=== PATIENT | female | born 1965 | race Caucasian/White ===

== ENCOUNTER 2017-11-15 08:30 | Emergency (ER) | payer OTHER ==
--- NOTE | 2017-11-15 09:03 | ERPHSYRPT ---
- History of Present Illness Time Seen by Provider: 11/15/17 08:57 Source: patient Physician History: pt wants to know that she is on the right medicine for Lyme tick exposure. [facility] no fever, no emesis, no visual disturbance. +tender ' bump' on the left scalp is gone now Allergies/Adverse Reactions: cyclobenzaprine HCl [From Flexeril] Allergy (Severe, Verified 11/15/17 08:46) Shortness of Breath hydrocodone Allergy (Verified 11/15/17 08:46) Home Medications: Diclofenac Sodium [Voltaren] 75 mg PO BID 11/03/15 [History] Lisinopril/Hydrochlorothiazide [Lisinopril-Hctz 20-25 mg Tab] 1 each PO DAILY [History] Oxybutynin Chloride [Oxybutynin Chloride ER] 5 mg PO DAILY 11/03/15 [History] Cephalexin Mh 500 mg [Keflex 500 mg] 500 mg PO Q6H 11/15/17 [History] Mometasone/Formoterol [Dulera 200 Mcg/5 Mcg Inhaler] 8.8 gm IH UD 11/15/17 [ History] Ondansetron ODT 4 MG [Zofran Odt 4 mg] 4 mg PO Q6H PRN PRN 11/15/17 [ History] Tramadol HCl 50 mg [Ultram 50 mg] 50 mg PO TIDPRN 11/15/17 [History] Hx Tetanus, Diphtheria Vaccination/Date Given: No Hx Influenza Vaccination/Date Given: No Hx Pneumococcal Vaccination/Date Given: No - Review of Systems Constitutional: No Fever Eyes: No Vision Changes Ears, Nose, & Throat: No Hoarse Respiratory: No Dyspnea Cardiac: No Chest Pain Abdominal/Gastrointestinal: No Abdominal Pain, No Vomiting Neurological: No Dizziness, No Focal Weakness - Past Medical History Pertinent Past Medical History: Yes Neurological History: No Pertinent History Cardiac History: Hypertension Respiratory History: Other Endocrine Medical History: Other Musculoskeletal History: Osteoarthritis GI Medical History: Gallbladder Disease Female Reproductive Disorders: Abnormal Uterine Bleeding Other Medical History: pre diabetic, SOB, R LE fracture - Past Surgical History Past Surgical History: Yes Gastrointestinal: Cholecystectomy Female Surgical History: Hysterectomy, Tubal Ligation - Social History Smoking Status: Never smoker Exposure to second hand smoke: No Drug Use: none Patient Lives Alone: No - Physical Exam General Appearance: no apparent distress Eye Exam: PERRL/EOMI Ears, Nose, Throat Exam: moist mucous membranes Neck Exam: No meningismus Respiratory Exam: No respiratory distress Cardiovascular Exam: regular rate/rhythm Back Exam: normal inspection Extremity Exam: normal inspection Neurologic Exam: alert, oriented x 3, cooperative Skin Exam: other (no tick seen), No rash - Course Nursing assessment & vital signs reviewed: Yes - Progress Discussed with : Other (Dr Robledo) Will see patient in: office Counseled pt/family regarding: diagnosis, need for follow-up - Departure Time of Disposition: 09:01 Departure Disposition: Home Clinical Impression: Tick bite Qualifiers: Encounter type: subsequent encounter Qualified Code(s): W57.XXXD - Bitten or stung by nonvenomous insect and other nonvenomous arthropods, subsequent encounter Condition: Stable Critical Care Time: No Referrals: COURTNEY ROBLEDO MD [Primary Care Provider] - Instructions: Lyme Disease Additional Instructions: script for doxycycline, tylenol, return if worse, see your doctor
[2017-11-15 09:13] VITALS: BP 102/72; PULSE 106; O2SAT 93
== END 2017-11-15 09:13 | disposition home or self-care (01) ==
LOC: ED 08:30
DX: S00.06XD Insect bite (nonvenomous) of scalp, subsequent encounter (principal); W57.XXXD Bitten or stung by nonvenomous insect and other nonvenomous arthropods, subsequent encounter
CPT/HCPCS: 99281; 99283

== ENCOUNTER 2022-03-25 11:56 | Observation (INO) | payer MEDICARE ==
[2022-03-25 12:30] LABS: Absolute Neutrophil Ct (ANC) 6.66 x10^3/uL (1.4-6.9); Basophil (Absolute #) 0.04 x10^3/uL (0-0.4); Eosinophil % 2.1 % (0.00-5.0); Eosinophil (Absolute #) 0.19 x10^3/uL (0-0.5); Hematocrit 38.7 % (35-47); Hemoglobin 11.6 g/dL (12.0-16.0); Lymphocyte (Absolute #) 1.38 x10^3/uL (1.0-4.6); Lymphocytes % 15.5 % (24.0-44.0); Mean Cell Volume 94.4 fL (78-100); Mean Corpuscular Hemoglobin 28.3 pg (26-32); Mean Platelet Volume 11.4 fL (7.5-11.0); Monocyte (Absolute #) 0.58 x10^3/uL (0.0-1.3); Monocytes % 6.5 % (0.0-12.0); Neutrophil % 74.6 % (36.0-66.0); Platelet Count 207 x10^3/uL (150-450); Red Cell Distribution Width 17.3 % (11.5-14.0); White Blood Count 8.9 x10^3/uL (4.0-10.5)
--- NOTE | 2022-03-25 12:43 | XRAY ---
Exam: AP upright portable chest film from 03/25/2022. Comparison: None. Indication: 56-year-old female with chest pain; shortness of breath. Findings: The transverse heart size appears at the upper limits of normal, although there is some magnification on this AP portable technique. Minimal tortuosity of the descending thoracic aorta is seen. The nicholas and mediastinal structures reveal no pathological lymphadenopathy or other significant abnormality. The lungs are adequately expanded. There is a suggestion of mild passive vascular congestion within the nicholas and both lower lung teran. I do not see an airspace infiltrate. No pneumothorax or pleural effusion is seen. EKG leads are seen in place. Slight convexity of the mid thoracic spine toward the right is seen. Some subtle lateral osteophyte formation is seen within the thoracic spine. Impression: 1. The heart size appears towards the upper limits of normal, and there is some mild passive vascular congestion within the nicholas and lung bases. Correlate clinically. I do not see any air space infiltrates, Daja B lines, or pleural effusions. 2. No other acute cardiopulmonary disease is seen.
[2022-03-25 12:49] LABS: ALBUMIN 3.8 g/dL (3.5-5.0); ALKALINE PHOSPHATASE 129 U/L (38-126); ANION GAP 14.7 MEQ/L (5-15); BLOOD UREA NITROGEN 12 mg/dL (7-17); CHLORIDE 107 mmol/L (98-107); Calcium 8.3 mg/dL (8.4-10.2); Carbon Dioxide 23 mmol/L (22-30); Creatinine 1 0.54 mg/dL (0.52-1.04); EST GLOMERULAR FILTRATION RATE > 60.0 ML/MIN; Glucose 145 mg/dL (74-106); NT PRO BNP 593 pg/mL (0-900); Potassium 3.6 mmol/L (3.5-5.1); SGOT/AST 21 U/L (14-36); SGPT/ALT 22 U/L (0-35); SODIUM 142 mmol/L (137-145); Total Protein 6.9 g/dL (6.3-8.2)
--- NOTE | 2022-03-25 13:07 | ERPHSYRPT ---
- History of Present Illness Time Seen by Provider: 03/25/22 14:37 Historian: patient Exam Limitations: no limitations Patient Subjective Stated Complaint: Pt states "About 6 am this morning I noticed a pain in my left side in my neck and the pain is in my left shoudler an d chest. I went to Dr. Forman and he said since I am a diabetic I am a high risk for a silent heart attack so he sent me here." Triage Nursing Assessment: Pt presented alert and oriented X 3, skin pwd. Pt ambulates with an upright steady gait, able to speak in clear full sentences. pt resting comfortably on the bed. Physician History: Please 56-year-old female presents to our ED as referral from primary care doctor for evaluation of chest pain. Chest pain started approximately 6 AM. Chest pain described as an ache at his left chest that radiates to her left arm and neck. Patient denies a history of the same. Patient has a BMI of 63.3. S he is a diabetic. Symptoms are consistent with acute coronary syndrome. She has not taken aspirin or nitro today. Symptoms are constant. Symptoms are mild to moderate in intensity. No specific worsening improving factors. Patient voices no other complaints or concerns at this time. Portions of this note were created with voice recognition technology. There may be grammatical, spelling, punctuation or sound alike errors Timing/Duration: today Activities at Onset: none Quality: aching Location: other Chest Pain Radiation: neck (Left chest), arm Severity of Pain-Max: moderate Severity of Pain-Current: mild Modifying Factors: Improves With: nothing Associated Symptoms: denies symptoms Prior Chest Pain/Cardiac Workup: no prior chest pain Nitro Today/Relief: no nitro taken today Aspirin Treatment Today: no aspirin today Allergies/Adverse Reactions: cyclobenzaprine HCl [From Flexeril] Allergy (Severe, Verified 01/11/18 16:04) Shortness of Breath hydrocodone Allergy (Verified 01/11/18 16:04) Home Medications: Oxybutynin Chloride Xl 5 mg [Ditropan XL 5 MG] 5 mg PO DAILY 04/26/15 [History] Oxybutynin Chloride [Oxybutynin Chloride ER] 5 mg PO DAILY 11/03/15 [History] Ondansetron ODT 4 MG [Zofran Odt 4 mg] 4 mg PO Q6H PRN PRN 11/15/17 [History] Hx Tetanus, Diphtheria Vaccination/Date Given: Yes Hx Influenza Vaccination/Date Given: No Hx Pneumococcal Vaccination/Date Given: No Immunizations Up to Date: Yes Travel Risk - International Travel Have you traveled outside of the country in past 3 weeks: No - Coronavirus Screening Are you exhibiting any of the following symptoms?: No Close contact with a COVID-19 positive Pt in past 14-21 Days: No - Vaccine Status Have you recieved a Covid-19 vaccination: No - Review of Systems Constitutional: No Symptoms, No Fever, No Chills Eyes: No Symptoms Ears, Nose, & Throat: No Symptoms Respiratory: No Symptoms, No Cough, No Dyspnea Cardiac: No Symptoms, No Chest Pain, No Edema, No Syncope Abdominal/Gastrointestinal: No Symptoms, No Abdominal Pain, No Nausea, No Vomiting, No Diarrhea Genitourinary Symptoms: No Symptoms, No Dysuria Musculoskeletal: No Symptoms, No Back Pain, No Neck Pain Skin: No Symptoms, No Rash Neurological: No Symptoms, No Dizziness, No Focal Weakness, No Sensory Changes Psychological: No Symptoms Endocrine: No Symptoms Hematologic/Lymphatic: No Symptoms Immunological/Allergic: No Symptoms All Other Systems: Reviewed and Negative - Past Medical History Pertinent Past Medical History: Yes Neurological History: No Pertinent History ENT History: No Pertinent History Cardiac History: Congestive Heart Failure, Hypertension Respiratory History: No Pertinent History, Other Endocrine Medical History: Diabetes Type II Musculoskeletal History: Osteoarthritis GI Medical History: No Pertinent History, Gallbladder Disease History: Other Psycho-Social History: No Pertinent History Female Reproductive Disorders: No Pertinent History, Abnormal Uterine Bleeding Other Medical History: bladder leakage - Past Surgical History Past Surgical History: Yes Neuro Surgical History: No Pertinent History Cardiac: No Pertinent History Respiratory: No Pertinent History Gastrointestinal: Cholecystectomy Genitourinary: No Pertinent History Musculoskeletal: No Pertinent History Female Surgical History: Hysterectomy, Tubal Ligation Other Surgical History: foot left X 2 - Social History Smoking Status: Former smoker Exposure to second hand smoke: No Drug Use: none Patient Lives Alone: No - Nursing Vital Signs Nursing Vital Signs: Initial Vital Signs Temperature 97.1 F 03/25/22 11:56 Pulse Rate 89 03/25/22 11:56 Respiratory Rate 24 03/25/22 11:56 Blood Pressure 132/100 03/25/22 11:56 O2 Sat by Pulse Oximetry 99 09/13/22 11:56 Pain Scale Pain Intensity 4 - Physical Exam General Appearance: no apparent distress, alert, obese Eye Exam: PERRL/EOMI, eyes nml inspection Ears, Nose, Throat Exam: normal ENT inspection, TMs normal, pharynx normal, moist mucous membranes Neck Exam: normal inspection, non-tender, supple, full range of motion Respiratory Exam: normal breath sounds, lungs clear, airway intact, No respiratory distress Cardiovascular Exam: regular rate/rhythm, normal heart sounds, normal peripheral pulses Gastrointestinal/Abdomen Exam: soft, normal bowel sounds, No tenderness, No mass Back Exam: normal inspection, normal range of motion, No CVA tenderness, No vertebral tenderness Extremity Exam: normal inspection, normal range of motion Neurologic Exam: alert, oriented x 3, cooperative, director mission II-XII nml as tested, normal mood/affect, sensation nml, No motor deficits Skin Exam: normal color, warm, dry Lymphatic Exam: No adenopathy SpO2 Interpretation: normal SpO2: 97 O2 Delivery: Room Air - Course Nursing assessment & vital signs reviewed: Yes EKG Interpreted by Me: RATE (88), Sinus Rhythm, NORMAL AXIS, NORMAL INTERVALS - Radiology Exams Chest X-ray Interpretation: Teleradiologist Report (Mild passive vascular congestion within the nicholas and lung bases.) Ordered Tests: Active Orders 24 hr Category Date Time Status Battery Inspector STAT Care 03/25/22 12:18 Active EKG-ER Only STAT Care 03/25/22 12:17 Active IV Insertion STAT Care 03/25/22 12:17 Active Pulse Oximetry (ED) STAT Care 03/25/22 12:17 Active CHEST 1 VIEW (PORTABLE) Stat Exams 03/25/22 12:17 Completed CBC W DIFF Stat Lab 03/25/22 12:20 Completed CMP Stat Lab 03/25/22 12:20 Completed CULTURE,URINE Stat Lab 03/25/22 12:24 Received D-DIMER QUANTITATIVE Stat Lab 03/25/22 12:20 Completed NT PRO BNP Stat Lab 03/25/22 12:20 Completed TROPONIN Q4H Lab 03/25/22 12:20 Completed TROPONIN Q4H Lab 03/25/22 16:30 Ordered TROPONIN Q4H Lab 03/25/22 20:30 Ordered UA W/RFX CULTURE Stat Lab 03/25/22 12:24 Completed Transfer Order Routine Transfer 03/25/22 Ordered Medication Summary Discontinued Medications Generic Name Dose Route Start Last Admin Trade Name Julieth PRN Reason Stop Dose Admin Aspirin 324 mg 03/25/22 14:45 03/25/22 14:49 Aspirin 81 Mg Tab.Chew PO 03/25/22 14:46 324 mg STAT ONE Administration Aspirin Confirm 03/25/22 14:47 Aspirin 81 Mg Tab.Chew Administered 03/25/22 14:48 Dose 324 mg .ROUTE .STK-MED ONE Nitroglycerin 1 gm 03/25/22 14:44 03/25/22 14:49 Nitroglycerin 1 Gm Packet TOP 03/25/22 14:45 1 gm STAT ONE Administration Nitroglycerin Confirm 03/25/22 14:47 Nitroglycerin 1 Gm Packet Administered 03/25/22 14:48 Dose 1 gm .ROUTE .STK-MED ONE Lab/Rad Data: Laboratory Result Diagrams 03/25/22 12:20 03/25/22 12:20 Laboratory Results 03/25/22 03/25/22 03/25/22 Range/Units 12:24 12:24 12:20 WBC (4.0-10.5) x10^3/uL RBC (4.1-5.4) x10^6/uL Hgb (12.0-16.0) g/dL Hct (35-47) % MCV (78-100) fL MCH (26-32) pg MCHC (32-36) g/dL RDW (11.5-14.0) % Plt Count (150-450) x10^3/uL MPV (7.5-11.0) fL Gran % (36.0-66.0) % Immature Gran % (Auto) (0.00-0.4) % Nucleat RBC Rel Count (0.00-0.1) % Eos # (Auto) (0-0.5) x10^3/uL Immature Gran # (Auto) (0.00-0.03) x10^3u/L Absolute Lymphs (auto) (1.0-4.6) x10^3/uL Absolute Monos (auto) (0.0-1.3) x10^3/uL Absolute Nucleated RBC (0.00-0.01) x10^3u/L Lymphocytes % (24.0-44.0) % Monocytes % (0.0-12.0) % Eosinophils % (0.00-5.0) % Basophils % (0.0-0.4) % Absolute Granulocytes (1.4-6.9) x10^3/uL Basophils # (0-0.4) x10^3/uL D-Dimer (0.0-0.50) mg/L Sodium (137-145) mmol/L Potassium (3.5-5.1) mmol/L Chloride (98-107) mmol/L Carbon Dioxide (22-30) mmol/L Anion Gap (5-15) MEQ/L BUN (7-17) mg/dL Creatinine (0.52-1.04) mg/dL Estimated GFR ML/MIN Glucose (74-106) mg/dL Calcium (8.4-10.2) mg/dL Total Bilirubin (0.2-1.3) mg/dL AST (14-36) U/L ALT (0-35) U/L Alkaline Phosphatase (38-126) U/L Troponin I < 0.012 (0.000-0.034) ng/mL NT-Pro-B Natriuret Pep (0-900) pg/mL Serum Total Protein (6.3-8.2) g/dL Albumin (3.5-5.0) g/dL Urinalys Dipstick Clnc MAIN LAB Urine Color YELLOW (YELLOW) Urine Appearance CLEAR (CLEAR) Urine pH 5.0 (5-6) Ur Specific Marlow 1.020 (1.005-1.025) POC Urine Protein Conf NEGATIVE (Negative) Urine Ketones NEGATIVE (NEGATIVE) Urine Nitrite POSITIVE (NEGATIVE) Urine Bilirubin NEGATIVE (NEGATIVE) Urine Urobilinogen 0.2 (0-1) mg/dL Urine Leukocytes NEGATIVE (NEGATIVE) Urine WBC (Auto) 0-2 (0-5) /HPF Urine RBC (Auto) NONE (0-2) /HPF U Epithel Cells (Auto) NONE (FEW) /HPF Urine Bacteria (Auto) RARE (NEGATIVE) /HPF Urine RBC NEGATIVE (0-5) Keegan/ul Urine Mucus (Auto) SLIGHT (NEGATIVE) /HPF Ur Culture Indicated? YES Urine Glucose >=1000 (NEGATIVE) mg/dL Influenza Type A Ag NEGATIVE (NEGATIVE) Influenza Type B Ag NEGATIVE (NEGATIVE) RSV (PCR) NEGATIVE (Negative) SARS-CoV-2 (PCR) NEGATIVE (NEGATIVE) 03/25/22 03/25/22 03/25/22 Range/Units 12:20 12:20 12:20 WBC 8.9 (4.0-10.5) x10^3/uL RBC 4.10 (4.1-5.4) x10^6/uL Hgb 11.6 L (12.0-16.0) g/dL Hct 38.7 (35-47) % MCV 94.4 (78-100) fL MCH 28.3 (26-32) pg MCHC 30.0 L (32-36) g/dL RDW 17.3 H (11.5-14.0) % Plt Count 207 (150-450) x10^3/uL MPV 11.4 H (7.5-11.0) fL Gran % 74.6 H (36.0-66.0) % Immature Gran % (Auto) 0.9 H (0.00-0.4) % Nucleat RBC Rel Count 0.2 H (0.00-0.1) % Eos # (Auto) 0.19 (0-0.5) x10^3/uL Immature Gran # (Auto) 0.08 H (0.00-0.03) x10^3u/L Absolute Lymphs (auto) 1.38 (1.0-4.6) x10^3/uL Absolute Monos (auto) 0.58 (0.0-1.3) x10^3/uL Absolute Nucleated RBC 0.02 H (0.00-0.01) x10^3u/L Lymphocytes % 15.5 L (24.0-44.0) % Monocytes % 6.5 (0.0-12.0) % Eosinophils % 2.1 (0.00-5.0) % Basophils % 0.4 (0.0-0.4) % Absolute Granulocytes 6.66 (1.4-6.9) x10^3/uL Basophils # 0.04 (0-0.4) x10^3/uL D-Dimer 0.33 (0.0-0.50) mg/L Sodium 142 (137-145) mmol/L Potassium 3.6 (3.5-5.1) mmol/L Chloride 107 (98-107) mmol/L Carbon Dioxide 23 (22-30) mmol/L Anion Gap 14.7 (5-15) MEQ/L BUN 12 (7-17) mg/dL Creatinine 0.54 (0.52-1.04) mg/dL Estimated GFR > 60.0 ML/MIN Glucose 145 H (74-106) mg/dL Calcium 8.3 L (8.4-10.2) mg/dL Total Bilirubin 0.50 (0.2-1.3) mg/dL AST 21 (14-36) U/L ALT 22 (0-35) U/L Alkaline Phosphatase 129 H (38-126) U/L Troponin I (0.000-0.034) ng/mL NT-Pro-B Natriuret Pep 593 (0-900) pg/mL Serum Total Protein 6.9 (6.3-8.2) g/dL Albumin 3.8 (3.5-5.0) g/dL Urinalys Dipstick Clnc Urine Color (YELLOW) Urine Appearance (CLEAR) Urine pH (5-6) Ur Specific Marlow (1.005-1.025) POC Urine Protein Conf (Negative) Urine Ketones (NEGATIVE) Urine Nitrite (NEGATIVE) Urine Bilirubin (NEGATIVE) Urine Urobilinogen (0-1) mg/dL Urine Leukocytes (NEGATIVE) Urine WBC (Auto) (0-5) /HPF Urine RBC (Auto) (0-2) /HPF U Epithel Cells (Auto) (FEW) /HPF Urine Bacteria (Auto) (NEGATIVE) /HPF Urine RBC (0-5) Keegan/ul Urine Mucus (Auto) (NEGATIVE) /HPF Ur Culture Indicated? Urine Glucose (NEGATIVE) mg/dL Influenza Type A Ag (NEGATIVE) Influenza Type B Ag (NEGATIVE) RSV (PCR) (Negative) SARS-CoV-2 (PCR) (NEGATIVE) - Progress Progress: improved Air Movement: good Progress Note: 56-year-old female presents to ED with complaint of left-sided chest pain. Pain refers to her neck and left upper extremity. Preliminary work-up negative. However in light of patient's symptoms and cardiac risk factors we will admit for serial troponins and observation. Case discussed with Dr. Forman excepting patient observation. Plan of care discussed with patient. She agrees to admission [facility] for further evaluation and treatment. She voices no other complaints or concerns at this time. Patient received aspirin and nitroglycerin in our ED. Portions of this note were created with voice recognition technology. There may be grammatical, spelling, punctuation or sound alike errors 03/25/22 15:46 Blood Culture(s) Obtained: No Antibiotics given: No Discussed with : [place] Will see patient in: hospital (observation) Counseled pt/family regarding: lab results, diagnosis, rad results - Departure Departure Disposition: Observation Clinical Impression: ACS (acute coronary syndrome), Chest pain Condition: Stable Critical Care Time: No
[2022-03-25 13:45] LABS: Bacteria RARE /HPF (NEGATIVE); Mucus SLIGHT /HPF (NEGATIVE); WBC 0-2 /HPF (0-5)
[2022-03-25 13:59] LABS: Appearance CLEAR (CLEAR); Bilirubin NEGATIVE (NEGATIVE); Dipstick done @ ? MAIN LAB; Glucose >=1000 mg/dL (NEGATIVE); Ketones NEGATIVE (NEGATIVE); Nitrite POSITIVE (NEGATIVE); Protein,Urine Dip NEGATIVE (Negative); RBC NEGATIVE Ery/ul (0-5); Urobilinogen 0.2 mg/dL (0-1)
[2022-03-25 14:02] LABS: Urine Cultured Indicated? YES
[2022-03-25 14:06] LABS: INFLUENZA A NEGATIVE (NEGATIVE); INFLUENZA B NEGATIVE (NEGATIVE); RESPIRATORY SYNCTIAL VIRUS NEGATIVE (Negative); SARS-CoV-2 Xpert Express NEGATIVE (NEGATIVE)
[2022-03-25] MEDS ORDERED: NITRO-BID 2% UD PACKETS TOP ONE (14:44)
[2022-03-25] MEDS ORDERED: BABY ASPIRIN 81 MG CHEW PO ONE (14:45)
[2022-03-25] MEDS ORDERED: BABY ASPIRIN 81 MG CHEW ONE (14:47)
[2022-03-25] MEDS ORDERED: NITRO-BID 2% UD PACKETS ONE (14:47)
[2022-03-25] MEDS ORDERED: MAALOX ES 30 ML UNIT DOSE PO PRN (15:51)
[2022-03-25] MEDS ORDERED: MILK OF MAGNESIA 30 ML PO PRN (15:51)
[2022-03-25] MEDS ORDERED: Senokot-S Tablet PO PRN (15:51)
[2022-03-25] MEDS ORDERED: Zofran 4 MG/2 ML VIAL IV PRN (15:51)
[2022-03-25] MEDS ORDERED: ZOFRAN ODT 4 MG PO PRN (17:09)
[2022-03-25] MEDS ORDERED: MEDICATION INTERVENTION MC SCH (17:30)
[2022-03-25] MEDS: ZYLOPRIM 100 MG PO SCH (18:09)
[2022-03-25] MEDS: Pepcid 20 MG PO SCH (18:09)
[2022-03-25] MEDS: Mirapex 0.5 MG Tablet PO SCH (18:09)
[2022-03-25] MEDS: Actos 30 MG PO SCH (18:09)
[2022-03-25] MEDS: Zaroxolyn 2.5 MG PO SCH (18:09)
[2022-03-25] MEDS: Glucotrol 5 MG PO SCH (18:09)
[2022-03-25] MEDS: Glucophage XR 500 MG PO SCH (18:09)
[2022-03-25] MEDS: ZOCOR 20MG PO SCH (18:10)
[2022-03-25] MEDS ORDERED: ROCEPHIN 1 Gm-D5w 50 ml Bag** 1 G/50 ML IVPB IV SCH (20:00)
[2022-03-25] MEDS: Klor Con PO SCH (21:34)
[2022-03-25] MEDS: LYRICA 150MG PO SCH (21:35)
[2022-03-25] MEDS: Ditropan XL 5 MG PO SCH (21:36)
[2022-03-25] MEDS ORDERED: Sodium Chloride 0.9% 250 ML 250 ML IV ONE (21:41)
[2022-03-25] MEDS: TYLENOL 325 MG PO PRN (21:48)
[2022-03-25] MEDS ORDERED: Lantus Insulin SQ SCH (22:00)
[2022-03-25] MEDS ORDERED: NON-FORMULARY ITEM (Metformin Hcl [Metformin Er Osmotic] 1,000 MG Tab.Er.24) PO SCH (22:00)
[2022-03-25] MEDS ORDERED: NON-FORMULARY ITEM (Insulin Glargine,Hum.Rec.Anlog [Basaglar Kwikpen U-100] 100 UNIT/ML In SQ SCH (22:00)
[2022-03-25] MEDS ORDERED: NON-FORMULARY ITEM (Glipizide 10 Mg*** [Glucotrol 10 Mg***] 10 MG Tablet) PO SCH (22:00)
[2022-03-26] MEDS: TYLENOL 325 MG PO PRN ×2 (02:25→07:28)
[2022-03-26] MEDS: Glucotrol 5 MG PO SCH (06:35)
[2022-03-26 07:18] LABS: Risk Ratio 4.2
[2022-03-26 07:52] VITALS: BP 131/59; PULSE 73; O2SAT 96
[2022-03-26] MEDS: Glucophage XR 500 MG PO SCH (08:14)
[2022-03-26] MEDS: Pepcid 20 MG PO SCH (09:27)
[2022-03-26] MEDS: Mirapex 0.5 MG Tablet PO SCH (09:27)
[2022-03-26] MEDS: Actos 30 MG PO SCH (09:27)
[2022-03-26] MEDS: ZYLOPRIM 100 MG PO SCH (09:27)
[2022-03-26] MEDS: ZOCOR 20MG PO SCH (09:27)
[2022-03-26] MEDS: Zaroxolyn 2.5 MG PO SCH (09:27)
[2022-03-26] MEDS: Klor Con PO SCH (09:28)
[2022-03-26] MEDS: LYRICA 150MG PO SCH (09:28)
[2022-03-26] MEDS: Ditropan XL 5 MG PO SCH (09:28)
[2022-03-26] MEDS ORDERED: Lantus Insulin SQ SCH (10:00)
[2022-03-26] MEDS ORDERED: NON-FORMULARY ITEM (Atorvastatin Calcium 20 MG Tab) PO SCH (10:00)
[2022-03-26] MEDS ORDERED: NON-FORMULARY ITEM (Insulin Glargine,Hum.Rec.Anlog [Basaglar Kwikpen U-100] 100 UNIT/ML In SQ SCH (10:00)
[2022-03-26] MEDS ORDERED: NON-FORMULARY ITEM (Dapagliflozin Propanediol [Farxiga] 10 MG Tablet) PO SCH (10:00)
[2022-03-26] MEDS ORDERED: ROCEPHIN 1 Gm-D5w 50 ml Bag** 1 G/50 ML IVPB IV SCH ×2 (10:00→22:00)
[2022-03-31] MEDS ORDERED: VITAMIN D PO SCH (10:00)
--- NOTE | 2022-04-03 06:35 | PCM.SSS ---
History of Present Illness - Chief Complaint Chief Complaint: ACS, CHEST PAIN Date: 03/26/22 History of Present Illness: is a 56 year old female. Pt. is diabetic and not been taking her medications the past several weeks, presented to office and sent to ER with onset that am of chest pain radiating into the shoulder and neck, pt. notes some sob but not much beyond her baseline, no movements noted to increase the pain and no known injury. - Review of Systems Constitutional: No Fever, No Chills Eyes: No Symptoms Ears, Nose, & Throat: No Symptoms Respiratory: No Cough, No Short Of Breath Cardiac: Chest Pain, No Edema, No Syncope Abdominal/Gastrointestinal: No Abdominal Pain, No Nausea, No Vomiting, No Diarrhea Genitourinary Symptoms: No Dysuria Musculoskeletal: Neck Pain, Joint Pain, No Back Pain Skin: No Rash Neurological: No Dizziness, No Focal Weakness, No Sensory Changes Psychological: No Symptoms Endocrine: No Symptoms Hematologic/Lymphatic: No Symptoms Immunological/Allergic: No Symptoms Medications & Allergies Home Medications: Home Medication List Oxybutynin Chloride Xl 5 mg [Ditropan XL 5 MG] 5 mg PO BID 04/26/15 [History Confirmed 03/25/22] Ondansetron ODT 4 MG [Zofran Odt 4 mg] 4 mg PO Q6H PRN PRN 11/15/17 [History Confirmed 03/25/22] Allopurinol 100 mg [Zyloprim 100 mg] 200 mg PO DAILY 03/25/22 [History C onfirmed 03/25/22] Atorvastatin Calcium [Lipitor 20MG Tablet] 20 mg PO DAILY 03/25/22 [History Confirmed 03/25/22] Cholecalciferol (Vitamin D3) [Vitamin D] 1.25 mg PO WEEKLY 03/25/22 [History Confirmed 03/25/22] Dapagliflozin Propanediol [Farxiga] 10 mg PO DAILY 03/25/22 [History Confirmed 03/25/22] Famotidine 20 mg [Pepcid 20 MG] 40 mg PO DAILY 03/25/22 [History Confirmed 03/25/22] Glipizide 10 mg [Glucotrol 10 MG] 10 mg PO BID 03/25/22 [History Confirmed 03/25/22] Insulin Glargine,Hum.rec.anlog [Basaglar Kwikpen U-100] 25 units SQ QPM 03/25/22 [History Confirmed 03/25/22] Insulin Glargine,Hum.rec.anlog [Basaglar Kwikpen U-100] 75 units SQ QAM 03/25/22 [History Confirmed 03/25/22] Metformin HCl [Metformin ER Osmotic] 1,000 mg PO BID 03/25/22 [History Confirmed 03/25/22] Metolazone 2.5 mg [Zaroxolyn 2.5 MG] 2.5 mg PO BID 03/25/22 [History Confirmed 03/25/22] Pioglitazone 30 mg [Actos 30 MG] 30 mg PO DAILY 03/25/22 [History Confirmed 03/25/22] Potassium Chloride Tab* [Klor Con] 20 meq PO BID 03/25/22 [History Confirmed 03/25/22] Pramipexole Di-HCl 0.5 mg [Mirapex 0.5 MG Tablet] 0.5 mg PO DAILY 03/25/22 [History Confirmed 03/25/22] Pregabalin [Lyrica 150Mg] 150 mg PO BID 03/25/22 [History Confirmed 03/25/22] Cephalexin Mh 500 mg [Keflex 500 mg] 500 mg PO TID #21 cap 03/26/22 [Rx] Fexofenadine HCl [Lynn Allergy] 180 mg PO DAILY #30 tablet 03/26/22 [Rx] Chemult-3 Fatty Acids/Fish Oil [Fish Oil 1,000 mg Capsule] 1,000 mg PO DAILY #30 cap 03/26/22 [Rx] Allergies/Adverse Reactions: Allergies Allergy/AdvReac Type Severity Reaction Status Date / Time cyclobenzaprine HCl Allergy Severe Shortness Verified 01/11/18 16:04 [From Flexeril] of Breath hydrocodone Allergy Verified 01/11/18 16:04 - Past Medical History Past Medical History: Yes Neurological History: No Pertinent History ENT History: No Pertinent History Cardiac History: Congestive Heart Failure, Hypertension Respiratory History: Other Endocrine Medical History: Diabetes Type II Musculoskelatal History: Osteoarthritis GI Medical History: Gallbladder Disease History: Other Pyscho-Social History: No Pertinent History Reproductive Disorders: Abnormal Uterine Bleeding Comment: bladder leakage - Past Surgical History Past Surgical History: Yes Neuro Surgical History: No Pertinent History Cardiac History: No Pertinent History Respiratory Surgery: No Pertinent History GI Surgical History: Cholecystectomy Genitourinary Surgical Hx: No Pertinent History Musculskeletal Surgical Hx: No Pertinent History Female Surgical History: Hysterectomy, Tubal Ligation Other Surgical History: foot left X 2 - Social History Smoking Status: Former smoker Exposure to second hand smoke: No Alcohol: None Drug Use: none - Physical Exam General Appearance: no apparent distress, alert, obese Neurologic Exam: alert, oriented x 3, cooperative, normal mood/affect, nml cerebellar function, nml station & gait, sensation nml, No motor deficits Eye Exam: PERRL/EOMI, eyes nml inspection Ears, Nose, Throat Exam: normal ENT inspection, TMs normal, pharynx normal, moist mucous membranes Neck Exam: normal inspection, non-tender, supple, full range of motion Respiratory Exam: normal breath sounds, lungs clear, No respiratory distress Cardiovascular Exam: regular rate/rhythm, normal heart sounds, normal peripheral pulses Gastrointestinal/Abdomen Exam: soft, normal bowel sounds, No tenderness, No mass Back Exam: normal inspection, normal range of motion, No CVA tenderness, No vertebral tenderness Extremity Exam: normal inspection, normal range of motion, pelvis stable Skin Exam: normal color, warm, dry, No rash Lymphatic Exam: No adenopathy Results - Labs Lab/Micro Results: Microbiology 03/25/22 12:24 Urine Culture - Final Urine, Void Escherichia Coli Assessment/Plan (1) Chest pain, rule out acute myocardial infarction Status: Acute Code(s): R07.9 - CHEST PAIN, UNSPECIFIED Hospital Summary - Hospital Course Hospital Course: cardiac markers were negative and pt. home medications were resumed, pt. with no further chest pain the following am was stable for discharge to home with op evaluation of cardiac status. - Vitals & Intake/Output Vital Signs: Vital Signs Temperature 97.3 F 03/26/22 07:51 Pulse Rate 73 03/26/22 07:51 Respiratory Rate 20 03/26/22 07:51 Blood Pressure 131/59 03/26/22 07:51 O2 Sat by Pulse Oximetry 96 03/26/22 07:51 - Lab Result Diagrams: 03/25/22 12:20 03/25/22 12:20 Micro Results-Entire Visit: Microbiology 03/25/22 12:24 Urine Culture - Final Urine, Void Escherichia Coli - Procedures and Test Procedures and Tests throughout Hospitalization: Therapy Orders & Screens 03/25/22 20:20 EKG ONCE Comment: Diagnosis: ACS, CHEST PAIN 03/26/22 05:00 EKG ONCE Comment: Diagnosis: ACS, CHEST PAIN 03/26/22 08:53 STRESS TEST [Schedule Outpt Stress Test] ROUTINE Comment: Diagnosis: ACS, CHEST PAIN 03/27/22 05:00 EKG ONCE Comment: Diagnosis: ACS, CHEST PAIN 03/28/22 05:00 EKG ONCE Comment: Diagnosis: ACS, CHEST PAIN - Discharge Discharge Date: 03/26/22 Disposition: Home, Self-Care Condition: Stable Prescriptions: New Fexofenadine HCl [Lynn Allergy] 180 mg PO DAILY #30 tablet Chemult-3 Fatty Acids/Fish Oil [Fish Oil 1,000 mg Capsule] 1,000 mg PO CAROLINE LY #30 cap Cephalexin Mh 500 mg [Keflex 500 mg] 500 mg PO TID #21 cap Continue Oxybutynin Chloride Xl 5 mg [Ditropan XL 5 MG] 5 mg PO BID Ondansetron ODT 4 MG [Zofran Odt 4 mg] 4 mg PO Q6H PRN PRN PRN Reason: Nausea Potassium Chloride Tab* [Klor Con] 20 meq PO BID Insulin Glargine,Hum.rec.anlog [Basaglar Kwikpen U-100] 75 units SQ QAM Pregabalin [Lyrica 150Mg] 150 mg PO BID Pramipexole Di-HCl 0.5 mg [Mirapex 0.5 MG Tablet] 0.5 mg PO DAILY Metformin HCl [Metformin ER Osmotic] 1,000 mg PO BID Pioglitazone 30 mg [Actos 30 MG] 30 mg PO DAILY Dapagliflozin Propanediol [Farxiga] 10 mg PO DAILY Famotidine 20 mg [Pepcid 20 MG] 40 mg PO DAILY Cholecalciferol (Vitamin D3) [Vitamin D] 1.25 mg PO WEEKLY Insulin Glargine,Hum.rec.anlog [Basaglar Kwikpen U-100] 25 units SQ QPM Glipizide 10 mg [Glucotrol 10 MG] 10 mg PO BID Atorvastatin Calcium [Lipitor 20MG Tablet] 20 mg PO DAILY Allopurinol 100 mg [Zyloprim 100 mg] 200 mg PO DAILY Metolazone 2.5 mg [Zaroxolyn 2.5 MG] 2.5 mg PO BID Outpatient Orders: Stress Test: [place] Facility: [facility], Location: RESPIRATORY THERAPY Instructions: Pleuritic Chest Pain, Cardiac Stress Test Additional Instructions: stress test 04/07/22 at 0700 Follow up with: MAGGIE VELAZQUEZ MD [Primary Care Provider] - 04/02/22 10:15 am Forms: Discharge Instructions
== END 2022-03-26 11:17 | disposition home or self-care (01) ==
LOC: ED 11:56 → MED SURG 15:43
PROVIDERS: ADMIT Family Medicine; ATTEND Family Medicine
DX: R07.9 Chest pain, unspecified (principal); E11.9 Type 2 diabetes mellitus without complications; I11.0 Hypertensive heart disease with heart failure; I50.9 Heart failure, unspecified; Z79.899 Other long term (current) drug therapy; Z20.828 Contact with and (suspected) exposure to other viral communicable diseases
CPT/HCPCS: 0241U; 36000; 36415; 71045; 80053; 80061; 81015; 82947; 83036; 83721; 83880; 84484; 85025; 85379; 87077; 87086; 87186; 93005; 93041; 93268; 94760; 99285; G0378; J0696; A9270-GY

== ENCOUNTER 2024-02-10 15:13 | Emergency (ER) | payer MEDICARE ==
[2024-02-10 15:27] VITALS: TEMP 98.9
--- NOTE | 2024-02-10 15:38 | ERPHSYRPT ---
- History of Present Illness Historian: patient Exam Limitations: no limitations Patient Subjective Stated Complaint: Pt states "I have been having chills and fever and coughing and diarrhea for the past couple of days." Triage Nursing Assessment: Pt presented alert and oriented X 3, skin pwd. Pt ambulates with an upright steady gait, able to speak in clear full sentences. PT resting comfortably on the bed. Left leg swollen more than the right Hx Tetanus, Diphtheria Vaccination/Date Given: Yes Hx Influenza Vaccination/Date Given: No Hx Pneumococcal Vaccination/Date Given: No Immunizations Up to Date: No - History of Present Illness Time Seen by Provider: 02/10/24 15:21 Physician History: For the past 2 days pt has had upper abdominal pain, diarrhea, nausea, a non- productive cough, chills and fever up to 101.1 degrees. For the past hour pt has had 4/10 chest pressure; for the past month left leg swelling; for the past 2 months left knee pain. (ASHLEE WOLF) Allergies/Adverse Reactions: cyclobenzaprine HCl [From Flexeril] Allergy (Severe, Verified 04/10/23 18:40) Shortness of Breath hydrocodone Allergy (Verified 04/10/23 18:40) Home Medications: Oxybutynin Chloride Xl 5 mg [Ditropan XL 5 MG] 5 mg PO BID 04/26/15 [History] Ondansetron ODT 4 MG [Zofran Odt 4 mg] 4 mg PO Q6H PRN PRN 11/15/17 [History] Allopurinol 100 mg [Zyloprim 100 mg] 200 mg PO DAILY 03/25/22 [History] Atorvastatin Calcium [Lipitor 20MG Tablet] 20 mg PO DAILY 03/25/22 [History] Cholecalciferol (Vitamin D3) [Vitamin D] 1.25 mg PO WEEKLY 03/25/22 [History] Dapagliflozin Propanediol [Farxiga] 10 mg PO DAILY 03/25/22 [History] Famotidine 20 mg [Pepcid 20 MG] 40 mg PO DAILY 03/25/22 [History] Glipizide 10 mg [Glucotrol 10 MG] 10 mg PO BID 03/25/22 [History] Insulin Glargine,Hum.rec.anlog [Basaglar Kwikpen U-100] 25 units SQ QPM 03/25/22 [History] Insulin Glargine,Hum.rec.anlog [Basaglar Kwikpen U-100] 75 units SQ QAM 03/25/22 [History] Metformin HCl [Metformin ER Osmotic] 1,000 mg PO BID 03/25/22 [History] Metolazone 2.5 mg [Zaroxolyn 2.5 MG] 2.5 mg PO BID 03/25/22 [History] Pioglitazone 30 mg [Actos 30 MG] 30 mg PO DAILY 03/25/22 [History] Potassium Chloride Tab* [Klor Con] 20 meq PO BID 03/25/22 [History] Pramipexole Di-HCl 0.5 mg [Mirapex 0.5 MG Tablet] 0.5 mg PO DAILY 03/25/22 [History] Pregabalin [Lyrica 150Mg] 150 mg PO BID 03/25/22 [History] Travel Risk - International Travel Have you traveled outside of the country in past 3 weeks: No - Emerging Infectious Disease Are you exhibiting symptoms associated with any current EIDs: Yes Symptoms: Diarrhea, Fever - Review of Systems Constitutional: Fever Ears, Nose, & Throat: Ear Pain Respiratory: Cough Cardiac: Chest Pain Abdominal/Gastrointestinal: Abdominal Pain, Nausea, Diarrhea, No Vomiting Genitourinary Symptoms: No Dysuria Musculoskeletal: Joint Pain (left knee), Other (left leg swelling) Neurological: No Headache - Past Medical History Pertinent Past Medical History: Yes Neurological History: Peripheral Neuropathy ENT History: No Pertinent History Cardiac History: High Cholesterol, Hypertension Respiratory History: Sleep Apnea Endocrine Medical History: Diabetes Type II Musculoskeletal History: Osteoarthritis GI Medical History: GERD, Gallbladder Disease History: Other Psycho-Social History: No Pertinent History Female Reproductive Disorders: Abnormal Uterine Bleeding Other Medical History: RESTLESS LEG SYNDROME, PERIPHERAL NEUROPATHY, OVERACTIVE BLADDER - Past Surgical History Past Surgical History: Yes Neuro Surgical History: No Pertinent History Cardiac: No Pertinent History Respiratory: No Pertinent History Gastrointestinal: Cholecystectomy Genitourinary: No Pertinent History Musculoskeletal: No Pertinent History Female Surgical History: Hysterectomy, Tubal Ligation Other Surgical History: foot left X 2 - Social History Smoking Status: Former smoker Exposure to second hand smoke: No Drug Use: none Patient Lives Alone: No - Social Determinants of Health Will the patient participate in the screening: Declined to provide - Physical Exam General Appearance: alert Eye Exam: eyes nml inspection Ears, Nose, Throat Exam: TMs normal, pharyngeal erythema Neck Exam: normal inspection Respiratory Exam: lungs clear Cardiovascular Exam: normal heart sounds Gastrointestinal/Abdomen Exam: normal bowel sounds Extremity Exam: swelling (left leg), tenderness (anterior left knee mildly tender over infrapatellar area) Neurologic Exam: alert, cooperative SpO2 Interpretation: normal SpO2: 99 O2 Delivery: Room Air - Nursing Vital Signs Nursing Vital Signs: Initial Vital Signs Temperature 98.9 F 02/10/24 15:20 Pulse Rate 105 H 02/10/24 15:20 Respiratory Rate 20 02/10/24 15:20 Blood Pressure 148/72 02/10/24 15:20 O2 Sat by Pulse Oximetry 99 02/10/24 15:20 Pain Scale Pain Intensity 0 - Course Nursing assessment & vital signs reviewed: Yes EKG Interpreted by Me: RATE (98), Sinus Rhythm, Other (QTc = 524) - Radiology Exams Left Lower Leg X-ray Interpretation: Discussed w/ radiologist, No Fracture (See report.) Left Knee X-ray Interpretation: Discussed w/ radiologist (See report.) - CT Exams Chest CT Interpretation: Discussed w/radiologist (No obvious central PE. O/W normal lungs, heart and bony thorax.) Abdomen/Pelvis CT Interpretation: Discussed w/radiologist (Compared to 05/29/13. Again 24.7 cm fatty liver. 16.7 cm splenomegaly. 7 mm right renal cyst.New moderate sized infraumbilical hernia w/herniated omental fat & loop of small bowel without complications. Also new 4 cm left ovarian cyst.) - Radiology Ultrasound Exam Left Venous Lower Extremity Ultrasound: discussed w/radiologist (Negative for DVT) Ordered Tests: Active Orders 24 hr Category Date Time Status AMA [Release AMA] OM.NOW Care 02/10/24 21:44 Ordered EKG-ER Only STAT Care 02/10/24 15:31 Active IV Insertion STAT Care 02/10/24 15:31 Active Telemetry q4h Care 02/10/24 17:35 Active ABDOMEN AND PELVIS W CONTRAST [CT] Stat Exams 02/10/24 15:33 Taken CHEST WITH CONTRAST [CT] Stat Exams 02/10/24 15:34 Taken KNEE (3 VIEWS) Stat Exams 02/10/24 15:37 Completed LOWER LEG Stat Exams 02/10/24 15:37 Completed VENOUS UNILAT/LIMITED EXTREMIT [US] Stat Exams 02/10/24 15:36 Completed AMYLASE Stat Lab 02/10/24 16:15 Completed BMP Stat Lab 02/10/24 19:10 Completed CBC W DIFF Stat Lab 02/10/24 16:15 Completed CMP Stat Lab 02/10/24 16:15 Completed CULTURE,URINE Stat Lab 02/10/24 15:40 Received LIPASE Stat Lab 02/10/24 16:15 Completed Lactic Acid Stat Lab 02/10/24 16:00 Completed MONO SCREEN Stat Lab 02/10/24 16:00 Completed TROPONIN Q4H Lab 02/10/24 16:00 Completed TROPONIN Q4H Lab 02/10/24 19:10 Completed TROPONIN Q4H Lab 02/10/24 23:45 Ordered UA W/RFX UR CULTURE Stat Lab 02/10/24 15:40 Completed VENOUS BLOOD GAS Stat Lab 02/10/24 16:00 Completed Medication Summary Generic Name Dose Route Start Last Admin Trade Name Freq PRN Reason Stop Dose Admin Sodium Chloride 1,000 mls @ 100 mls/hr 02/10/24 15:45 02/10/24 16:18 Sodium Chloride 0.9% 1000 Ml IV 03/11/24 15:44 100 mls/hr .Q10H JD Administration Discontinued Medications Generic Name Dose Route Start Last Admin Trade Name Freq PRN Reason Stop Dose Admin Ceftriaxone Sodium 1 gm in 100 mls @ 200 mls/hr 02/10/24 16:29 02/10/24 18:49 Rocephin 1 Gm / 100 Ml Nacl IV 02/10/24 16:58 Infused STAT ONE Infusion Ceftriaxone Sodium Confirm 02/10/24 16:52 Rocephin 1 Gm / 100 Ml Nacl Administered 02/10/24 16:53 Dose 1 gm in 100 mls @ ud IV .STK-MED ONE Potassium Chloride 20 meq in 100 mls @ 50 mls/hr 02/10/24 17:34 02/10/24 18:06 Potassium Chloride 20 Meq In Water 100ml IV 02/10/24 19:33 50 mls/hr STAT ONE Administration Potassium Chloride Confirm 02/10/24 17:39 Potassium Chloride 20 Meq In Water 100ml Administered 02/10/24 17:40 Dose 100 mls @ ud IV .STK-MED ONE Potassium Bicarbonate 50 meq 02/10/24 17:35 02/10/24 18:05 Potassium Bicarbonate 25 Meq Tab PO 02/10/24 17:36 50 meq STAT ONE Administration Potassium Bicarbonate Confirm 02/10/24 17:39 Potassium Bicarbonate 25 Meq Tab Administered 02/10/24 17:40 Dose 50 meq .ROUTE .STK-MED ONE Potassium Chloride 20 meq 02/10/24 19:38 02/10/24 20:30 Potassium Chloride Tab 10 Meq Tab PO 02/10/24 19:39 20 meq STAT ONE Administration Potassium Chloride Confirm 02/10/24 20:28 Potassium Chloride Tab 10 Meq Tab Administered 02/10/24 20:29 Dose 20 meq .ROUTE .STK-MED ONE Prochlorperazine Edisylate 5 mg 02/10/24 16:22 02/10/24 16:50 Prochlorperazine Edisylate 10 Mg/2 Ml Vial IV 02/10/24 16:23 5 mg STAT ONE Administration Prochlorperazine Edisylate Confirm 02/10/24 16:24 Prochlorperazine Edisylate 10 Mg/2 Ml Vial Administered 02/10/24 16:25 Dose 10 mg .ROUTE .STK-MED ONE Lab/Rad Data: Laboratory Result Diagrams 02/10/24 16:15 02/10/24 19:10 Laboratory Results 02/10/24 02/10/24 02/10/24 Range/Units 19:10 19:10 16:15 WBC (3.98-10.04) x10^3/uL RBC (3.93-5.22) x10^6/uL Hgb (11.2-15.7) g/dL Hct (34.1-44.9) % MCV (79.4-94.8) fL MCH (25.6-32.2) pg MCHC (32.2-35.5) g/dL RDW (11.7-14.4) % Plt Count (182-369) x10^3/uL MPV (9.4-12.3) fL Gran % (34.0-71.1) % Immature Gran % (Auto) (0.001-0.429) % Nucleat RBC Rel Count (0.00-0.2) % Eos # (Auto) (0.04-0.36) x10^3/uL Immature Gran # (Auto) (0.001-0.031) x10^3u/L Absolute Lymphs (auto) (1.18-3.74) x10^3/uL Absolute Monos (auto) (0.24-0.86) x10^3/uL Absolute Nucleated RBC (0.00-0.012) x10^3u/L Lymphocytes % (19.3-51.7) % Monocytes % (4.7-12.5) % Eosinophils % (0.7-5.8) % Basophils % (0.1-1.2) % Absolute Granulocytes (1.56-6.13) x10^3/uL Basophils # (0.01-0.08) x10^3/uL pO2/FiO2 Ratio % VBG pH (7.32-7.42) VBG pCO2 at Pat Temp (42-55) mm/Hg VBG pO2 at Pat Temp (25-40) mm/Hg VBG HCO3 (22-28) meq/L VBG O2 Sat (Tonio) (95-100) VBG Base Excess (-2.0-2.0) VBG Hemoglobin VBG Carboxyhemoglobin (0.0-6.9) % T HGB POC Potassium (3.5-5.1) Sodium 134 L 134 L (135-145) mmol/L Potassium 3.0 L* 2.7 L* (3.5-5.1) mmol/L Chloride 91 L 93 L (98-107) mmol/L Carbon Dioxide 34 H 32 H (22-30) mmol/L Anion Gap 11.6 12.3 (5-15) MEQ/L BUN 13 15 (7-17) mg/dL Creatinine 0.71 0.71 (0.52-1.04) mg/dL Estimated GFR 99.7 99.7 ML/MIN Glucose 128 H 136 H (74-106) mg/dL Lactic Acid (0.4-2.0) Calcium 8.6 8.8 (8.4-10.2) mg/dL Total Bilirubin 1.30 (0.2-1.3) mg/dL AST 28 (14-36) U/L ALT 24 (0-35) U/L Alkaline Phosphatase 129 H (38-126) U/L Troponin I < 0.012 (0.000-0.033) ng/mL Serum Total Protein 7.3 (6.3-8.2) g/dL Albumin 4.2 (3.5-5.0) g/dL Amylase 55 (30-110) U/L Lipase 30 (23-300) U/L Urine Color (Yellow) Urine Appearance (Clear) Urine pH (4.6-8.0) Ur Specific [place] (1.005-1.030) Urine Protein (Negative) Urine Glucose (UA) (Negative) mg/dL Urine Ketones (Negative) Urine Blood (Negative) Urine Nitrite (Negative) Urine Bilirubin (Negative) Urine Urobilinogen (0.2) mg/dL Ur Leukocyte Esterase (Negative) U Hyaline Cast (Auto) (0-2) /LPF Urine Microscopic RBC (0-5) /HPF Urine Microscopic WBC (0-5) /HPF Ur Epithelial Cells (None Seen) /HPF Urine Bacteria (None Seen) /HPF Urine Yeast (Budding) (None Seen) /HPF Urine Culture Reflexed (NO) Monoscreen (NEGATIVE) Influenza Type A Ag (NEGATIVE) Influenza Type B Ag (NEGATIVE) RSV (PCR) (NEGATIVE) SARS-CoV-2 (PCR) (NEGATIVE) Group A Strep Antibody (NEGATIVE) 02/10/24 02/10/24 02/10/24 Range/Units 16:15 16:00 16:00 WBC 11.4 H (3.98-10.04) x10^3/uL RBC 4.69 (3.93-5.22) x10^6/uL Hgb 13.6 (11.2-15.7) g/dL Hct 41.4 (34.1-44.9) % MCV 88.3 (79.4-94.8) fL MCH 29.0 (25.6-32.2) pg MCHC 32.9 (32.2-35.5) g/dL RDW 18.0 H (11.7-14.4) % Plt Count 186 (182-369) x10^3/uL MPV 12.1 (9.4-12.3) fL Gran % 80.4 H (34.0-71.1) % Immature Gran % (Auto) 0.7 H (0.001-0.429) % Nucleat RBC Rel Count 0.2 (0.00-0.2) % Eos # (Auto) 0.02 L (0.04-0.36) x10^3/uL Immature Gran # (Auto) 0.08 H (0.001-0.031) x10^3u/L Absolute Lymphs (auto) 0.97 L (1.18-3.74) x10^3/uL Absolute Monos (auto) 1.11 H (0.24-0.86) x10^3/uL Absolute Nucleated RBC 0.02 H (0.00-0.012) x10^3u/L Lymphocytes % 8.5 L (19.3-51.7) % Monocytes % 9.8 (4.7-12.5) % Eosinophils % 0.2 L (0.7-5.8) % Basophils % 0.4 (0.1-1.2) % Absolute Granulocytes 9.15 H (1.56-6.13) x10^3/uL Basophils # 0.04 (0.01-0.08) x10^3/uL pO2/FiO2 Ratio % VBG pH (7.32-7.42) VBG pCO2 at Pat Temp (42-55) mm/Hg VBG pO2 at Pat Temp (25-40) mm/Hg VBG HCO3 (22-28) meq/L VBG O2 Sat (Tonio) (95-100) VBG Base Excess (-2.0-2.0) VBG Hemoglobin VBG Carboxyhemoglobin (0.0-6.9) % T HGB POC Potassium (3.5-5.1) Sodium (135-145) mmol/L Potassium (3.5-5.1) mmol/L Chloride (98-107) mmol/L Carbon Dioxide (22-30) mmol/L Anion Gap (5-15) MEQ/L BUN (7-17) mg/dL Creatinine (0.52-1.04) mg/dL Estimated GFR ML/MIN Glucose (74-106) mg/dL Lactic Acid (0.4-2.0) Calcium (8.4-10.2) mg/dL Total Bilirubin (0.2-1.3) mg/dL AST (14-36) U/L ALT (0-35) U/L Alkaline Phosphatase (38-126) U/L Troponin I (0.000-0.033) ng/mL Serum Total Protein (6.3-8.2) g/dL Albumin (3.5-5.0) g/dL Amylase (30-110) U/L Lipase (23-300) U/L Urine Color (Yellow) Urine Appearance (Clear) Urine pH (4.6-8.0) Ur Specific [place] (1.005-1.030) Urine Protein (Negative) Urine Glucose (UA) (Negative) mg/dL Urine Ketones (Negative) Urine Blood (Negative) Urine Nitrite (Negative) Urine Bilirubin (Negative) Urine Urobilinogen (0.2) mg/dL Ur Leukocyte Esterase (Negative) U Hyaline Cast (Auto) (0-2) /LPF Urine Microscopic RBC (0-5) /HPF Urine Microscopic WBC (0-5) /HPF Ur Epithelial Cells (None Seen) /HPF Urine Bacteria (None Seen) /HPF Urine Yeast (Budding) (None Seen) /HPF Urine Culture Reflexed (NO) Monoscreen NEGATIVE (NEGATIVE) Influenza Type A Ag NEGATIVE (NEGATIVE) Influenza Type B Ag NEGATIVE (NEGATIVE) RSV (PCR) NEGATIVE (NEGATIVE) SARS-CoV-2 (PCR) NEGATIVE (NEGATIVE) Group A Strep Antibody (NEGATIVE) 02/10/24 02/10/24 02/10/24 Range/Units 16:00 16:00 16:00 WBC (3.98-10.04) x10^3/uL RBC (3.93-5.22) x10^6/uL Hgb (11.2-15.7) g/dL Hct (34.1-44.9) % MCV (79.4-94.8) fL MCH (25.6-32.2) pg MCHC (32.2-35.5) g/dL RDW (11.7-14.4) % Plt Count (182-369) x10^3/uL MPV (9.4-12.3) fL Gran % (34.0-71.1) % Immature Gran % (Auto) (0.001-0.429) % Nucleat RBC Rel Count (0.00-0.2) % Eos # (Auto) (0.04-0.36) x10^3/uL Immature Gran # (Auto) (0.001-0.031) x10^3u/L Absolute Lymphs (auto) (1.18-3.74) x10^3/uL Absolute Monos (auto) (0.24-0.86) x10^3/uL Absolute Nucleated RBC (0.00-0.012) x10^3u/L Lymphocytes % (19.3-51.7) % Monocytes % (4.7-12.5) % Eosinophils % (0.7-5.8) % Basophils % (0.1-1.2) % Absolute Granulocytes (1.56-6.13) x10^3/uL Basophils # (0.01-0.08) x10^3/uL pO2/FiO2 Ratio 21.0 % VBG pH 7.59 H* (7.32-7.42) VBG pCO2 at Pat Temp 35 L (42-55) mm/Hg VBG pO2 at Pat Temp 34 (25-40) mm/Hg VBG HCO3 33.6 H* (22-28) meq/L VBG O2 Sat (Tonio) 63.3 L (95-100) VBG Base Excess 11.3 H (-2.0-2.0) VBG Hemoglobin 14.4 VBG Carboxyhemoglobin 3.0 (0.0-6.9) % T HGB POC Potassium 2.8 L* (3.5-5.1) Sodium (135-145) mmol/L Potassium (3.5-5.1) mmol/L Chloride (98-107) mmol/L Carbon Dioxide (22-30) mmol/L Anion Gap (5-15) MEQ/L BUN (7-17) mg/dL Creatinine (0.52-1.04) mg/dL Estimated GFR ML/MIN Glucose (74-106) mg/dL Lactic Acid 1.8 (0.4-2.0) Calcium (8.4-10.2) mg/dL Total Bilirubin (0.2-1.3) mg/dL AST (14-36) U/L ALT (0-35) U/L Alkaline Phosphatase (38-126) U/L Troponin I < 0.012 (0.000-0.033) ng/mL Serum Total Protein (6.3-8.2) g/dL Albumin (3.5-5.0) g/dL Amylase (30-110) U/L Lipase (23-300) U/L Urine Color (Yellow) Urine Appearance (Clear) Urine pH (4.6-8.0) Ur Specific [place] (1.005-1.030) Urine Protein (Negative) Urine Glucose (UA) (Negative) mg/dL Urine Ketones (Negative) Urine Blood (Negative) Urine Nitrite (Negative) Urine Bilirubin (Negative) Urine Urobilinogen (0.2) mg/dL Ur Leukocyte Esterase (Negative) U Hyaline Cast (Auto) (0-2) /LPF Urine Microscopic RBC (0-5) /HPF Urine Microscopic WBC (0-5) /HPF Ur Epithelial Cells (None Seen) /HPF Urine Bacteria (None Seen) /HPF Urine Yeast (Budding) (None Seen) /HPF Urine Culture Reflexed (NO) Monoscreen (NEGATIVE) Influenza Type A Ag (NEGATIVE) Influenza Type B Ag (NEGATIVE) RSV (PCR) (NEGATIVE) SARS-CoV-2 (PCR) (NEGATIVE) Group A Strep Antibody NOT DETECTED (NEGATIVE) 02/10/24 Range/Units 15:40 WBC (3.98-10.04) x10^3/uL RBC (3.93-5.22) x10^6/uL Hgb (11.2-15.7) g/dL Hct (34.1-44.9) % MCV (79.4-94.8) fL MCH (25.6-32.2) pg MCHC (32.2-35.5) g/dL RDW (11.7-14.4) % Plt Count (182-369) x10^3/uL MPV (9.4-12.3) fL Gran % (34.0-71.1) % Immature Gran % (Auto) (0.001-0.429) % Nucleat RBC Rel Count (0.00-0.2) % Eos # (Auto) (0.04-0.36) x10^3/uL Immature Gran # (Auto) (0.001-0.031) x10^3u/L Absolute Lymphs (auto) (1.18-3.74) x10^3/uL Absolute Monos (auto) (0.24-0.86) x10^3/uL Absolute Nucleated RBC (0.00-0.012) x10^3u/L Lymphocytes % (19.3-51.7) % Monocytes % (4.7-12.5) % Eosinophils % (0.7-5.8) % Basophils % (0.1-1.2) % Absolute Granulocytes (1.56-6.13) x10^3/uL Basophils # (0.01-0.08) x10^3/uL pO2/FiO2 Ratio % VBG pH (7.32-7.42) VBG pCO2 at Pat Temp (42-55) mm/Hg VBG pO2 at Pat Temp (25-40) mm/Hg VBG HCO3 (22-28) meq/L VBG O2 Sat (Tonio) (95-100) VBG Base Excess (-2.0-2.0) VBG Hemoglobin VBG Carboxyhemoglobin (0.0-6.9) % T HGB POC Potassium (3.5-5.1) Sodium (135-145) mmol/L Potassium (3.5-5.1) mmol/L Chloride (98-107) mmol/L Carbon Dioxide (22-30) mmol/L Anion Gap (5-15) MEQ/L BUN (7-17) mg/dL Creatinine (0.52-1.04) mg/dL Estimated GFR ML/MIN Glucose (74-106) mg/dL Lactic Acid (0.4-2.0) Calcium (8.4-10.2) mg/dL Total Bilirubin (0.2-1.3) mg/dL AST (14-36) U/L ALT (0-35) U/L Alkaline Phosphatase (38-126) U/L Troponin I (0.000-0.033) ng/mL Serum Total Protein (6.3-8.2) g/dL Albumin (3.5-5.0) g/dL Amylase (30-110) U/L Lipase (23-300) U/L Urine Color Yellow (Yellow) Urine Appearance Clear (Clear) Urine pH 6.0 (4.6-8.0) Ur Specific [place] 1.020 (1.005-1.030) Urine Protein Trace A (Negative) Urine Glucose (UA) >=1000 A (Negative) mg/dL Urine Ketones 15 A (Negative) Urine Blood Negative (Negative) Urine Nitrite Negative (Negative) Urine Bilirubin Negative (Negative) Urine Urobilinogen 1.0 A (0.2) mg/dL Ur Leukocyte Esterase Negative (Negative) U Hyaline Cast (Auto) NONE SEEN (0-2) /LPF Urine Microscopic RBC 0-2 (0-5) /HPF Urine Microscopic WBC 6-10 A (0-5) /HPF Ur Epithelial Cells Rare (None Seen) /HPF Urine Bacteria Few A (None Seen) /HPF Urine Yeast (Budding) Few A (None Seen) /HPF Urine Culture Reflexed YES (NO) Monoscreen (NEGATIVE) Influenza Type A Ag (NEGATIVE) Influenza Type B Ag (NEGATIVE) RSV (PCR) (NEGATIVE) SARS-CoV-2 (PCR) (NEGATIVE) Group A Strep Antibody (NEGATIVE) - Progress Progress: improved Counseled pt/family regarding: lab results, diagnosis, need for follow-up, rad results - Progress Progress Note: Patient endorsed to Dr. Singh at approximately [address] Singh advised follow-up on BMP to reassess potassium. Patient refused blood draws requesting discharge. Patient will leave AMA. Patient is of sound mind. Patient is appropriate to make informed and independent medical decisions. Patient understands that leaving AGAINST MEDICAL ADVICE can result in delayed diagnosis, increased risk of morbidity, mortality, short and long-term disability including . In spite of these risks, patient has decided to leave AGAINST MEDICAL ADVICE. Patient understands that she may return to our ED at any point if she reconsiders. Patient agrees to follow-up with her primary care doctor within 48 hours for reevaluation. Patient voices no other complaints or concerns at this time. We will release patient AGAINST MEDICAL ADVICE per their request. Complexity problem addressed is moderate acute complicated. No critical care time. Complex of data reviewed and analyzed is moderate. Test ordered test re viewed results analyzed and correlated clinically with history and physical exam. Risk of complication and or risk of morbidity/mortality patient management is moderate. Vital stable. Time spent to discharge patient is approximately 10 minutes. Plan of care established for shared decision making. No social determinants of health to impede follow-up. Portions of this note were created with voice recognition technology. There may be grammatical, spelling, punctuation or sound alike errors 02/10/24 21:44 (LISA SINGH) Medical Desision Making - Diagnostic Testing Diagnostic test were ordered, analyzed, and reviewed by me: Yes Radiological Interpretation: Discussed w/ radiologist - Departure Departure Disposition: Home Critical Care Time: No - Departure Clinical Impression: UTI (urinary tract infection), Hypokalemia, Chest pressure, Abdominal pain, Pain in left knee, Swelling of left lower extremity, Diarrhea, Fever Condition: Stable Referrals: MAGGIE VELAZQUEZ MD [Primary Care Provider] - Follow up/PCP as directed Instructions: Urinary tract infections in adults, Hypokalemia, Abdominal Pain, Adult ED, Chest Pain, Adult ED, Diarrhea, Adult ED Additional Instructions: Follow up with private doctor tomorrow. Prescriptions: Nitrofurantoin Macro 100 mg [Macrobid 100MG Capsule] 100 mg PO BID #14 cap
[2024-02-10] MEDS ORDERED: Sodium Chloride 0.9% 1000 ML 1,000 ML ONE (16:16)
[2024-02-10] MEDS: Sodium Chloride 0.9% 1000 ML 1,000 ML IV SCH (16:18)
[2024-02-10 16:21] LABS: Lactic Acid 1.8 (0.4-2.0); VBG BASE EXCESS 11.3 (-2.0-2.0); VBG HCO3- 33.6 meq/L (22-28); VBG HEMOGLOBIN 14.4; VBG O2 SATURATION 63.3 (95-100)
[2024-02-10 16:22] LABS: VBG POTASSIUM 2.8 (3.5-5.1); VBG pH 7.59 (7.32-7.42)
[2024-02-10 16:22] LABS: Absolute Neutrophil Ct (ANC) 9.15 x10^3/uL (1.56-6.13); BASOPHIL % 0.4 % (0.1-1.2); Basophil (Absolute #) 0.04 x10^3/uL (0.01-0.08); Eosinophil % 0.2 % (0.7-5.8); Eosinophil (Absolute #) 0.02 x10^3/uL (0.04-0.36); Hematocrit 41.4 % (34.1-44.9); Hemoglobin 13.6 g/dL (11.2-15.7); IMMATURE GRAN # 0.08 x10^3u/L (0.001-0.031); IMMATURE GRAN % 0.7 % (0.001-0.429); Lymphocyte (Absolute #) 0.97 x10^3/uL (1.18-3.74); Lymphocytes % 8.5 % (19.3-51.7); Mean Cell Volume 88.3 fL (79.4-94.8); Mean Corpuscular Hgb Concent. 32.9 g/dL (32.2-35.5); Mean Platelet Volume 12.1 fL (9.4-12.3); Monocyte (Absolute #) 1.11 x10^3/uL (0.24-0.86); Monocytes % 9.8 % (4.7-12.5); NUCLEATED RBC # 0.02 x10^3u/L (0.00-0.012); NUCLEATED RBC % 0.2 % (0.00-0.2); Neutrophil % 80.4 % (34.0-71.1); Platelet Count 186 x10^3/uL (182-369); Red Blood Count 4.69 x10^6/uL (3.93-5.22); White Blood Count 11.4 x10^3/uL (3.98-10.04)
[2024-02-10] MEDS ORDERED: Compazine 10 MG/2 ML ONE (16:24)
[2024-02-10 16:26] LABS: ADD URINE CULTURE? YES (NO); Appearance Clear (Clear); Bacteria Few /HPF (None Seen); Bilirubin Negative (Negative); Blood Negative (Negative); Budding Yeast Few /HPF (None Seen); Epithelial Cells Rare /HPF (None Seen); Glucose, Urine >=1000 mg/dL (Negative); Hyaline Casts NONE SEEN /LPF (0-2); Ketones 15 (Negative); Leukocyte Esterase Negative (Negative); Nitrite Negative (Negative); Protein,Urine Dip Trace (Negative); RBC 0-2 /HPF (0-5)
[2024-02-10 16:38] LABS: ALBUMIN 4.2 g/dL (3.5-5.0); ANION GAP 12.3 MEQ/L (5-15); BILIRUBIN,TOTAL 1.3 mg/dL (0.2-1.3); Calcium 8.8 mg/dL (8.4-10.2); Creatinine 1 0.71 mg/dL (0.52-1.04); EST GLOMERULAR FILTRATION RATE 99.7 ML/MIN; Total Protein 7.3 g/dL (6.3-8.2)
[2024-02-10 16:42] LABS: Potassium 2.7 mmol/L (3.5-5.1)
--- NOTE | 2024-02-10 16:42 | XRAY ---
Indication: Pain. Comparison: None 3 view left knee demonstrates osteopenia, mild/moderate tricompartmental degenerative changes greatest medial compartment, and minimal vascular calcifications. Query old proximal medial tibial fracture deformity. No other bony, articular, or soft tissue abnormalities.
--- NOTE | 2024-02-10 16:42 | XRAY ---
Indication: Swelling. Comparison: None 2 view left lower leg demonstrates osteopenia, small plantar heel spur, and knee degenerative arthropathy reported separately. No other bony, articular, or soft tissue abnormalities.
[2024-02-10 16:50] LABS: INFLUENZA A NEGATIVE (NEGATIVE); INFLUENZA B NEGATIVE (NEGATIVE); RESPIRATORY SYNCTIAL VIRUS NEGATIVE (NEGATIVE); SARS-CoV-2 Xpert Express NEGATIVE (NEGATIVE)
[2024-02-10] MEDS: Compazine 10 MG/2 ML IV ONE (16:50)
[2024-02-10] MEDS ORDERED: ROCEPHIN 1 GM / 100 ML NaCl 1 GM/100 ML IVPB IV ONE (16:52)
[2024-02-10] MEDS: ROCEPHIN 1 GM / 100 ML NaCl 1 GM/100 ML IVPB IV ONE (16:53)
--- NOTE | 2024-02-10 17:02 | XRAY ---
Indication: Swelling. Pain. Two-dimensional sonogram and color Doppler imaging major venous vessels left leg performed. Comparison: May 07, 2015 No thrombus seen in the examined deep venous vessels left leg including greater saphenous vein. Veins demonstrate normal compressibility. Venous waveforms are normal with and without augmentation. Impression: Left leg continues to be negative for DVT.
[2024-02-10] MEDS ORDERED: K-LYTE ONE (17:39)
[2024-02-10] MEDS ORDERED: POTASSIUM CHLORIDE 20 mEq IN WATER 100ML 100 ML IV ONE (17:39)
[2024-02-10] MEDS: K-LYTE PO ONE (18:05)
[2024-02-10] MEDS: POTASSIUM CHLORIDE 20 mEq IN WATER 100ML 20 MEQ/100 ML BAG IV ONE (18:06)
[2024-02-10 19:27] LABS: ANION GAP 11.6 MEQ/L (5-15); Calcium 8.6 mg/dL (8.4-10.2); Creatinine 1 0.71 mg/dL (0.52-1.04); EST GLOMERULAR FILTRATION RATE 99.7 ML/MIN
[2024-02-10] MEDS ORDERED: Klor Con ONE (20:28)
[2024-02-10] MEDS: Klor Con PO ONE (20:30)
[2024-02-10 21:08] VITALS: BP 109/65; PULSE 94; RESP 23; O2SAT 94
--- NOTE | 2024-02-11 09:08 | XRAY ---
Indication: Chest pain. Fever, chills, cough, and short of breath. Multiple contiguous axial images obtained through the chest using 100 cc Isovue 370 contrast and PE protocol. Comparison: None Suboptimal opacification pulmonary arteries limits evaluation for pulmonary embolus. No obvious central pulmonary embolus. Heart not enlarged. Aorta is normal in course and caliber. No pathologic mediastinal/hilar lymphadenopathy. Lungs inflated and clear. Bony thorax intact with minimal/mild degenerative changes throughout the spine. CT abdomen/pelvis reported separately. Impression: 1. Pulmonary embolus evaluation limited due to suboptimal contrast opacification. No obvious central pulmonary embolus. 2. Multilevel degenerative spondylosis. 3. Remaining CT chest with contrast exam is negative.
--- NOTE | 2024-02-11 09:11 | XRAY ---
Indication: Abdominal pain. Fever, chills, cough, and short of breath. Multiple contiguous axial images obtained through the abdomen and pelvis using 100 cc Isovue 370 contrast and PE protocol. Comparison: May 29, 2013 CT chest reported separate. Noncontrasted stomach and bowel loops appear nonobstructed. Appendix not visualized. Again partial hysterectomy reported with new cholecystectomy. New 4 cm left ovary cyst. Again 24.7 cm fatty hepatomegaly, 16.7 cm splenomegaly, and 7 mm right mid renal exophytic cyst. No free fluid/air. Remaining liver, Engquist, spleen, adrenal glands, kidneys, ureters, and bladder are unremarkable. New minimal aortoiliac calcifications. No AAA or pathologic retroperitoneal lymphadenopathy. Osseous structures intact with minimal/mild degenerative changes throughout thoracolumbar spine. New moderate sized infraumbilical ventral hernia with herniated omental fat and small bowel loops without complications. Impression: 1. New 4 cm left ovary cyst. Pelvic sonogram may yield further information if there is clinical concern. 2. Chronic findings including fatty hepatomegaly, splenomegaly, right renal cyst, arteriosclerotic disease, degenerative spondylosis, and infraumbilical ventral hernia.
== END 2024-02-10 21:54 | disposition left against medical advice (07) ==
LOC: ED 15:13
DX: N39.0 Urinary tract infection, site not specified (principal); E87.6 Hypokalemia; R07.9 Chest pain, unspecified; R10.10 Upper abdominal pain, unspecified; M25.562 Pain in left knee; M79.89 Other specified soft tissue disorders; R19.7 Diarrhea, unspecified; R50.9 Fever, unspecified; R11.0 Nausea; R05.1 Acute cough; E78.5 Hyperlipidemia, unspecified; I10 Essential (primary) hypertension; E11.42 Type 2 diabetes mellitus with diabetic polyneuropathy; Z79.84 Long term (current) use of oral hypoglycemic drugs; Z79.4 Long term (current) use of insulin; Z79.899 Other long term (current) drug therapy
CPT/HCPCS: 0241U; 36000; 36415; 71260; 73562; 73590; 74177; 80048; 80053; 81001; 82150; 82805; 83605; 83690; 84484; 85025; 86308; 87077; 87086; 87186; 87651; 93005; 93971; 96374; 96375; 99285; J0696; J3480; A9270-GY

== ENCOUNTER 2024-05-30 16:04 | Emergency (ER) | payer MEDICARE ==
[2024-05-30 17:44] VITALS: TEMP 98.6
[2024-05-30 18:13] VITALS: O2SAT 93
[2024-05-30 19:02] LABS: ALBUMIN 4.3 g/dL (3.5-5.0); ANION GAP 12.6 MEQ/L (5-15); BILIRUBIN,TOTAL 0.7 mg/dL (0.2-1.3); Calcium 9.1 mg/dL (8.4-10.2); Creatinine 1 0.77 mg/dL (0.52-1.04); EST GLOMERULAR FILTRATION RATE 90.5 ML/MIN; Total Protein 7.7 g/dL (6.3-8.2)
[2024-05-30 19:07] LABS: Potassium 2.8 mmol/L (3.5-5.1)
--- NOTE | 2024-05-30 19:08 | ERPHSYRPT ---
- History of Present Illness Time Seen by Provider: 05/30/24 18:40 Source: patient Exam Limitations: no limitations Patient Subjective Stated Complaint: Pt reports she had labs drawn at [facility] on 05/26/24 and was found to have low potassium. Clinic has been trying to reach pt to give results but pts phone was out of minutes so they were not updated of results until today at which time they were instructed to go to ER. Triage Nursing Assessment: Pt alert and oriented x3. Respirations easy/nonlabored. Skin w/p/d. Ambulated to ED cot without difficulty. Pt states she has pain in bilat lower extremities but pt feels it is her neuropathy. Timing/Duration: today Severity: mild Modifying Factors: Improves With: nothing Allergies/Adverse Reactions: cyclobenzaprine HCl [From Flexeril] Allergy (Severe, Verified 05/30/24 17:35) Shortness of Breath hydrocodone Allergy (Verified 05/30/24 17:35) Home Medications: Atorvastatin Calcium [Lipitor 20MG Tablet] 20 mg PO DAILY 03/25/22 [History] Metformin HCl [Metformin ER Osmotic] 1,000 mg PO BID 03/25/22 [History] Metolazone 2.5 mg [Zaroxolyn 2.5 MG] 2.5 mg PO BID 03/25/22 [History] Potassium Chloride Tab* [Klor Con] 10 meq PO TID 03/25/22 [History] Pregabalin [Lyrica 150Mg] 150 mg PO BID 03/25/22 [History] Diclofenac Sodium 75 mg PO BID PRN 05/30/24 [History] Empagliflozin [Jardiance] 25 mg PO DAILY 05/30/24 [History] Furosemide 20 mg [Lasix 20 mg] 1 tab PO BID 05/30/24 [History] Insulin Glargine,Hum.rec.anlog [Lantus] See Rx Instructions .ROUTE .COMPLEX 05/30/24 [History] Pramipexole Di-HCl [Pramipexole Dihydrochloride] 1 tab PO DAILY 05/30/24 [History] Hx Tetanus, Diphtheria Vaccination/Date Given: (unknown) Hx Influenza Vaccination/Date Given: No Hx Pneumococcal Vaccination/Date Given: No Travel Risk - International Travel Have you traveled outside of the country in past 3 weeks: No - Emerging Infectious Disease Are you exhibiting symptoms associated with any current EIDs: No Symptoms: Diarrhea, Fever - Review of Systems Eyes: No Symptoms Ears, Nose, & Throat: No Symptoms Respiratory: No Symptoms Cardiac: No Symptoms Abdominal/Gastrointestinal: No Symptoms Genitourinary Symptoms: No Symptoms Musculoskeletal: No Symptoms Skin: No Symptoms Neurological: No Symptoms Psychological: No Symptoms - Past Medical History Pertinent Past Medical History: Yes Neurological History: Peripheral Neuropathy ENT History: No Pertinent History Cardiac History: High Cholesterol, Hypertension Respiratory History: Sleep Apnea Endocrine Medical History: Diabetes Type II Musculoskeletal History: Osteoarthritis GI Medical History: GERD, Gallbladder Disease History: Other Psycho-Social History: No Pertinent History Female Reproductive Disorders: Abnormal Uterine Bleeding Other Medical History: RESTLESS LEG SYNDROME, PERIPHERAL NEUROPATHY, OVERACTIVE BLADDER, only has one ovary - Past Surgical History Past Surgical History: Yes Neuro Surgical History: No Pertinent History Cardiac: No Pertinent History Respiratory: No Pertinent History Gastrointestinal: Cholecystectomy Genitourinary: No Pertinent History Musculoskeletal: No Pertinent History Female Surgical History: Hysterectomy, Tubal Ligation Other Surgical History: foot left X 2 - Social History Smoking Status: Former smoker Exposure to second hand smoke: No Drug Use: none Patient Lives Alone: No - Social Determinants of Health Will the patient participate in the screening: Declined to provide - Nursing Vital Signs Nursing Vital Signs: Initial Vital Signs Temperature 98.6 F 05/30/24 17:15 Pulse Rate 83 05/30/24 17:15 Respiratory Rate 18 05/30/24 17:15 Blood Pressure 118/79 05/30/24 17:15 O2 Sat by Pulse Oximetry 95 05/30/24 17:15 Pain Scale Pain Intensity 6 - Physical Exam General Appearance: no apparent distress Eye Exam: PERRL/EOMI Ears, Nose, Throat Exam: normal ENT inspection Neck Exam: normal inspection Respiratory Exam: normal breath sounds Cardiovascular Exam: regular rate/rhythm Gastrointestinal/Abdomen Exam: soft, normal bowel sounds Neurologic Exam: alert, oriented x 3 Skin Exam: normal color SpO2: 93 Ordered Tests: Active Orders 24 hr Category Date Time Status CMP Stat Lab 05/30/24 18:05 Completed Lab/Rad Data: Laboratory Result Diagrams 05/30/24 18:05 Laboratory Results 05/30/24 Range/Units 18:05 Sodium 139 (135-145) mmol/L Potassium 2.8 L* (3.5-5.1) mmol/L Chloride 91 L (98-107) mmol/L Carbon Dioxide 38 H (22-30) mmol/L Anion Gap 12.6 (5-15) MEQ/L BUN 17 (7-17) mg/dL Creatinine 0.77 (0.52-1.04) mg/dL Estimated GFR 90.5 ML/MIN Glucose 100 (74-106) mg/dL Calcium 9.1 (8.4-10.2) mg/dL Total Bilirubin 0.70 (0.2-1.3) mg/dL AST 26 (14-36) U/L ALT 29 (0-35) U/L Alkaline Phosphatase 128 H (38-126) U/L Serum Total Protein 7.7 (6.3-8.2) g/dL Albumin 4.3 (3.5-5.0) g/dL - Progress Progress Note: patients repeat potassium is low at 2.8 she does not want iv potassium at this time and will only agree to oral potassium and was instructed on the need to take her postassium as recommended and follow up with her Pmd for repeat pot assium 05/30/24 19:14 Medical Desision Making - Discussion of managment Agreed on:: need for follow-up - Departure Departure Disposition: Home Clinical Impression: Hypokalemia Condition: Stable Critical Care Time: No Referrals: MAGGIE VELAZQUEZ MD [Primary Care Provider] - Follow up/PCP as directed
[2024-05-30 19:14] VITALS: BP 129/76; PULSE 87; RESP 22
[2024-05-30] MEDS ORDERED: Klor Con ONE ×2 (19:20→19:29)
[2024-05-30] MEDS: Klor Con PO ONE ×2 (19:21→19:29)
== END 2024-05-30 19:30 | disposition home or self-care (01) ==
LOC: ED 16:04
DX: E87.6 Hypokalemia (principal)
CPT/HCPCS: 36415; 80053; 93005; 99283; 99284; A9270-GY